=== PATIENT | male | born 1970 | race Hispanic/Latino ===

== ENCOUNTER 2021-05-12 00:29 | Emergency (ER) | payer OTHER ==
[~2021-05-12] VITALS: Ht 182.9 cm; Wt 95.0 kg
[2021-05-12] MEDS ORDERED: FLEXERIL5 M1 PO (02:00)
[2021-05-12] MEDS ORDERED: TORADOL PO (02:00)
[2021-05-12] MEDS ORDERED: HYCODAN1 ML PO (02:00)
[2021-05-12 02:10] VITALS: BP 128/84
== END 2021-05-12 02:05 | disposition home or self-care (01) | DRG 179 ==
LOC: ED 00:29
DX: U07.1 COVID-19 (principal)

== ENCOUNTER 2021-11-28 19:52 | Emergency (ER) | payer OTHER ==
[~2021-11-28] VITALS: Ht 182.9 cm; Wt 97.0 kg
[~2021-11-28 19:52] MED LIST: FLEXERIL5 M1 PO; HYCODAN1 ML PO; TORADOL PO
[2021-11-28 20:00] VITALS: BP 138/89
[2021-11-28 20:31] VITALS: BP 131/69
[2021-11-28 20:41] VITALS: BP 131/69
[2021-11-28] MEDS ORDERED: ZPAK PO (20:42)
== END 2021-11-28 20:50 | disposition home or self-care (01) | DRG 153 ==
LOC: ED 19:52
DX: J06.9 Acute upper respiratory infection, unspecified (principal); Z20.822 Contact with and (suspected) exposure to COVID-19; M19.072 Primary osteoarthritis, left ankle and foot; Z98.890 Other specified postprocedural states

== ENCOUNTER 2022-04-23 07:58 | Day surgery (SDC) | payer OTHER ==
[~2022-04-23] VITALS: Ht 182.9 cm; Wt 94.3 kg
[~2022-04-23 07:58] MED LIST changes: +AMBIEN5 MG PO; +CYMBALTA60 MG PO; +ZPAK PO
[2022-04-23] MEDS ORDERED: CEPHALEXIN500 MG PO (09:21)
[2022-04-23] MEDS ORDERED: OXYCOD-APAP1 TA1 PO (09:21)
[2022-04-23 12:48] VITALS: BP 118/63
== END 2022-04-23 12:50 | disposition home or self-care (01) | DRG 496 ==
LOC: ORM 07:58
PROVIDERS: ATTEND Podiatrist Foot & Ankle Surgery
PROC: 0QPM04Z Removal of Internal Fixation Device from Left Tarsal, Open Approach (ICD-10-PCS; principal; 2022-04-23)
PROC: 0QBM0ZZ Excision of Left Tarsal, Open Approach (ICD-10-PCS; 2022-04-23)
DX: T84.213A Breakdown (mechanical) of internal fixation device of bones of foot and toes, initial encounter (principal); M84.375K Stress fracture, left foot, subsequent encounter for fracture with nonunion; M25.775 Osteophyte, left foot; M19.072 Primary osteoarthritis, left ankle and foot; M21.42 Flat foot [pes planus] (acquired), left foot; X58.XXXA Exposure to other specified factors, initial encounter; Y83.8 Other surgical procedures as the cause of abnormal reaction of the patient, or of later complication, without mention of misadventure at the time of the procedure
CPT/HCPCS: J0131